=== PATIENT | male | born 1975 | race Caucasian/White ===

== ENCOUNTER 2022-03-07 07:34 | Day surgery (SDC) | payer BC ==
[2022-03-07] MEDS ORDERED: LACTATED RINGERS 1,000 ML IV ONE (08:16)
[2022-03-07] MEDS ORDERED: LACTATED RINGERS 1,000 ML IV SCH (08:22)
[2022-03-07 08:28] VITALS: RESP 16; TEMP 97.4
[2022-03-07] MEDS ORDERED: PROPOFOL 10 MG/ML 20 ML VIAL IV ONE (09:31)
[2022-03-07] MEDS ORDERED: LIDOCAINE 2% INJ 20 MG/ML (2 ML VIAL) ONE (09:31)
--- NOTE | 2022-03-07 09:41 | P.GSHP ---
History of Present Illness H&P Date: 03/07/22 Chief Complaint: Colon cancer screening 46-year-old male here today for colonoscopy. No bowel complaints. No family history of colon cancer. Past Medical History Past Medical History: No Reported History History of Any Multi-Drug Resistant Organisms: None Reported Additional Past Surgical History / Comment(s): benign cysts removed to chest wall. hydrocele repair Past Anesthesia/Blood Transfusion Reactions: No Reported Reaction Past Psychological History: No Psychological Hx Reported Smoking Status: Never smoker Past Alcohol Use History: Occasional Past Drug Use History: None Reported - Past Family History Father History Unknown: Yes Family Medical History: No Reported History Medications and Allergies Home Medications Medication Instructions Recorded Confirmed Type No Known Home Medications 03/02/22 03/02/22 History Allergies Allergy/AdvReac Type Severity Reaction Status Date / Time No Known Allergies Allergy Verified 03/07/22 08:22 Surgical - Exam Vital Signs Temp Pulse Resp BP Pulse Ox 97.4 F L 83 16 139/76 97 03/07/22 08:22 03/07/22 08:22 03/07/22 08:22 03/07/22 08:22 03/07/22 08:22 Physical exam: General: Well-developed, well-nourished HEENT: Normocephalic, sclerae nonicteric Abdomen: Nontender, nondistended Extremities: No edema Neuro: Alert and oriented Assessment and Plan (1) Colon cancer screening Narrative/Plan: Will proceed with colonoscopy at this time. Current Visit: Yes Status: Acute Code(s): Z12.11 - ENCOUNTER FOR SCREENING FOR MALIGNANT NEOPLASM OF COLON SNOMED Code(s): 514947620
--- NOTE | 2022-03-07 09:52 | P.PCN ---
Date of Procedure: 03/07/22 Procedure(s) Performed: PREOPERATIVE DIAGNOSIS: Colon cancer screening POSTOPERATIVE DIAGNOSIS: Normal exam PROCEDURE: Colonoscopy ANESTHESIA: MAC SURGEON: Srikanth Álvarez M.D. SPECIMENS: None ENDOSCOPIC PROCEDURE: The patient was placed on the endoscopy table in the left decubitus position. The Olympus colonoscope was inserted into the anus and passed under direct visualization to the base of the cecum. The appendiceal orifice was visualized. From that point the scope was slowly withdrawn inspecti ng all surfaces carefully. There were no neoplastic inflammatory or polypoid lesions throughout the cecum, ascending, transverse, descending, sigmoid and rectum. There was no visible diverticulosis noted. Digital rectal examination was normal. The patient was taken to the recovery room in stable condition per anesthesia guidelines. RECOMMENDATIONS: Resume diet. Repeat colonoscopy 10 years.
[2022-03-07 10:22] VITALS: BP 136/87; PULSE 80
== END 2022-03-07 10:41 | disposition home or self-care (01) ==
LOC: ORWHC2ENDO 07:34
PROVIDERS: ATTEND Surgery
DX: Z12.11 Encounter for screening for malignant neoplasm of colon (principal); Z98.890 Other specified postprocedural states; F10.20 Alcohol dependence, uncomplicated
CPT/HCPCS: 45378; J2704; J2001